=== PATIENT | female | born 1950 | race Caucasian/White ===

== ENCOUNTER → 2018-11-16 | Day surgery (SDC) | payer MEDICARE, BC ==
[~2018-11-16] MED LIST: BENZOCAINE 20% AEROSOL SPRAY 60 GM ONE; LIDOCAINE 2% JELLY 5 ML TUBE ONE
== END ==
LOC: END 07:35
PROVIDERS: ATTEND Surgery
DX: K21.9 Gastro-esophageal reflux disease without esophagitis (principal)
CPT/HCPCS: J3490